=== PATIENT | male | born 1995 | race Caucasian/White ===

== ENCOUNTER 2016-12-17 05:41 | Inpatient (IN) | payer BC ==
[2016-12-17 06:20] LABS: CH 29.5; CHCM 33.4; HCT 42.8 % (39.0-53.0); HDW 2.46; HGB 14.2 gm/dL (13.0-17.5); MCH 29.4 pg (25.0-35.0); MCHC 33.1 g/dL (31.0-37.0); MCV 88.8 fL (80.0-100.0); Mean Platelet Volume 6.6; RBC 4.82 m/uL (4.30-5.90); RDW 12.7 % (11.5-15.5); WBC 8.8 k/uL (3.8-10.6)
[2016-12-17] MEDS ORDERED: FAMOTIDINE 20 MG/2 ML VIAL IV STA (06:22)
--- NOTE | 2016-12-17 06:22 | ED ---
General Adult HPI - General Chief complaint: Overdose Stated complaint: overdose Time Seen by Provider: 12/17/16 05:55 Source: patient, EMS, RN notes reviewed Mode of arrival: EMS Limitations: no limitations - History of Present Illness Initial comments: Patient is a 21-year-old male presenting to the emergency department following medication ingestion. Patient is not forthcoming with information however does admit to taking pills. Patient is unclear how many he took. Patient does have bottles of Zofran quantity 10, propanolol 40 mg quantity 60, naproxen 500 mg quantity 60. Patient is unclear how much of each of these he actually took. Patient did vomit in the emergency department. Patient does have some nausea. Patient omits to being depressed and having suicidal thoughts. No history of suicide attempt in the past. No homicidal thoughts. No hallucinations. No physical complaints. Patient does admit to alcohol ingestion. - Related Data Allergies Allergy/AdvReac Type Severity Reaction Status Date / Time Penicillins Allergy Rash/Hives Verified 12/17/16 05:50 Review of Systems ROS Statement: Those systems with pertinent positive or pertinent negative responses have been documented in the HPI. ROS Other: All systems not noted in ROS Statement are negative. Constitutional: Denies: fever Eyes: Denies: eye pain ENT: Denies: ear pain Respiratory: Denies: cough Cardiovascular: Denies: chest pain Endocrine: Denies: fatigue Gastrointestinal: Reports: abdominal pain, nausea, vomiting Genitourinary: Denies: dysuria Musculoskeletal: Denies: back pain Skin: Denies: rash Neurological: Denies: weakness Past Medical History Additional Past Medical History / Comment(s): migraines History of Any Multi-Drug Resistant Organisms: Unobtainable Past Surgical History: No Surgical Hx Reported Past Psychological History: No Psychological Hx Reported Smoking Status: Current every day smoker Past Alcohol Use History: Occasional Past Drug Use History: None Reported General Exam Limitations: no limitations General appearance: alert, in no apparent distress Head exam: Present: atraumatic Eye exam: Present: normal appearance, PERRL ENT exam: Present: normal oropharynx Neck exam: Present: normal inspection Respiratory exam: Present: normal lung sounds bilaterally Cardiovascular Exam: Present: regular rate, normal rhythm GI/Abdominal exam: Present: soft, tenderness (Mild epigastric tenderness to palpation). Absent: distended Extremities exam: Present: normal inspection Neurological exam: Present: alert Psychiatric exam: Present: depressed Skin exam: Absent: rash Course Vital Signs 12/17/16 05:46 Temperature 98.4 F Respiratory 83 H Rate Blood Pressure 98/57 O2 Sat by Pulse 98 Oximetry EKG Findings - EKG Comments: EKG Findings:: Normal sinus rhythm at 76. First-degree AV block the VA of 202. QRS 84. QT 352. QTC 396. Normal axis. Normal QRS. Repolarization changes. Medical Decision Making - Medical Decision Making Patient reexamined in updated. Case discussed in detail with Dr. Newman, who will admit for medical call. Psychiatry will be consulted. - Lab Data Result diagrams: 12/17/16 05:49 12/17/16 05:49 Lab Results 12/17/16 12/17/16 12/17/16 Range/Units 05:49 05:49 05:49 WBC 8.8 (3.8-10.6) k/uL RBC 4.82 (4.30-5.90) m/uL Hgb 14.2 (13.0-17.5) gm/dL Hct 42.8 (39.0-53.0) % MCV 88.8 (80.0-100.0) fL MCH 29.4 (25.0-35.0) pg MCHC 33.1 (31.0-37.0) g/dL RDW 12.7 (11.5-15.5) % Plt Count 216 (150-450) k/uL PT (9.0-12.0) sec INR (<1.1) Sodium 147 H (137-145) mmol/L Potassium 4.0 (3.5-5.1) mmol/L Chloride 112 H (98-107) mmol/L Carbon Dioxide 23 (22-30) mmol/L Anion Gap 12 mmol/L BUN 10 (9-20) mg/dL Creatinine 0.99 (0.66-1.25) mg/dL Est GFR (MDRD) Af Amer >60 (>60 ml/min/1.73 sqM) Est GFR (MDRD) Non-Af >60 (>60 ml/min/1.73 sqM) Glucose 92 (74-99) mg/dL Calcium 7.5 L (8.4-10.2) mg/dL Total Bilirubin 0.6 (0.2-1.3) mg/dL AST 84 H (17-59) U/L ALT 53 (21-72) U/L Alkaline Phosphatase 74 (38-126) U/L Total Protein 6.3 (6.3-8.2) g/dL Albumin 3.9 (3.5-5.0) g/dL Salicylates <1.0 mg/dL Acetaminophen <10.0 ug/mL Serum Alcohol 173 mg/dL 12/17/16 Range/Units 05:49 WBC (3.8-10.6) k/uL RBC (4.30-5.90) m/uL Hgb (13.0-17.5) gm/dL Hct (39.0-53.0) % MCV (80.0-100.0) fL MCH (25.0-35.0) pg MCHC (31.0-37.0) g/dL RDW (11.5-15.5) % Plt Count (150-450) k/uL PT 11.6 (9.0-12.0) sec INR 1.2 (<1.1) Sodium (137-145) mmol/L Potassium (3.5-5.1) mmol/L Chloride (98-107) mmol/L Carbon Dioxide (22-30) mmol/L Anion Gap mmol/L BUN (9-20) mg/dL Creatinine (0.66-1.25) mg/dL Est GFR (MDRD) Af Amer (>60 ml/min/1.73 sqM) Est GFR (MDRD) Non-Af (>60 ml/min/1.73 sqM) Glucose (74-99) mg/dL Calcium (8.4-10.2) mg/dL Total Bilirubin (0.2-1.3) mg/dL AST (17-59) U/L ALT (21-72) U/L Alkaline Phosphatase (38-126) U/L Total Protein (6.3-8.2) g/dL Albumin (3.5-5.0) g/dL Salicylates mg/dL Acetaminophen ug/mL Serum Alcohol mg/dL - Radiology Data Interpreted by me: Abdominal x-ray shows no acute process Disposition Clinical Impression: Medication overdose, Depression, Suicide attempt Disposition: ADMITTED IP TO THIS HOSP
[2016-12-17] MEDS ORDERED: PEG 3350-NA SULF,BICARB,CL/KCL 4,000 ML BOTTLE PO ONE ×2 (06:25→11:52)
[2016-12-17 06:31] LABS: ALT 53 U/L (21-72); AST 84 U/L (17-59); Alkaline Phosphatase 74 U/L (38-126); Anion Gap 12 mmol/L; Blood Urea Nitrogen 10 mg/dL (9-20); Calcium 7.5 mg/dL (8.4-10.2); Carbon Dioxide 23 mmol/L (22-30); Chloride 112 mmol/L (98-107); Glucose 92 mg/dL (74-99); Non-African American GFR(MDRD) >60 (>60 ml/min/1.73 sqM); Sodium 147 mmol/L (137-145); Total Bilirubin 0.6 mg/dL (0.2-1.3); Total Protein 6.3 g/dL (6.3-8.2)
[2016-12-17 06:34] LABS: INR 1.2 (<1.1); Prothrombin Time 11.6 sec (9.0-12.0)
[2016-12-17 06:43] LABS: Alcohol 173 mg/dL
[2016-12-17 06:50] LABS: Acetaminophen <10.0 ug/mL; Salicylate <1.0 mg/dL
[2016-12-17] MEDS ORDERED: NALOXONE 0.4 MG/ML 1 ML VIAL IV PRN (07:12)
[2016-12-17] MEDS: SODIUM CHLORIDE 0.9% 1,000 ML IV SCH ×2 (07:30→22:11)
--- NOTE | 2016-12-17 07:40 | XR ---
EXAMINATION TYPE: XR abdomen 1V DATE OF EXAM: 12/17/2016 7:10 AM CLINICAL HISTORY: Abdominal pain not further specified. TECHNIQUE: 2 supine KUB images of the abdomen are obtained COMPARISON: None. FINDINGS: Scattered gas is seen in non-distended stomach and small bowel loops. Gas and fecal mater ial is seen in non-distended colon and rectum. Catheter mid thorax may reflects nasogastric tube whic h needs to be advanced. Clinical correlation advised. There is no visceromegaly, pneumoperitoneum, or abnormal calcification appreciated. The lung bases are clear and the osseous structures are intact. IMPRESSION: Overall nonobstructive bowel gas pattern. Possible nasogastric tube with tip in lower thorax needs to be advanced, clinical correlation advised.
[2016-12-17 09:30] VITALS: BMI 18.1
[2016-12-17] MEDS ORDERED: BISACODYL 10 MG SUPP RECTAL STA (11:53)
[2016-12-17 12:17] LABS: Glucose,Whole Blood 91 mg/dL (75-99)
[2016-12-17 12:40] LABS: Creatine Kinase 216 U/L (55-170)
[2016-12-17 12:53] LABS: Creatine Kinase MB 1.1 ng/mL (0.0-2.4); Troponin I <0.012 ng/mL (0.000-0.034)
[2016-12-17 15:00] LABS: Glucose,Whole Blood 87 mg/dL (75-99)
[2016-12-17 15:30] LABS: ALT 135 U/L (21-72); AST 148 U/L (17-59); Anion Gap 11 mmol/L; Blood Urea Nitrogen 8 mg/dL (9-20); Calcium 8.6 mg/dL (8.4-10.2); Carbon Dioxide 27 mmol/L (22-30); Chloride 105 mmol/L (98-107); Glucose 96 mg/dL (74-99); Non-African American GFR(MDRD) >60 (>60 ml/min/1.73 sqM); Potassium 4.7 mmol/L (3.5-5.1); Sodium 143 mmol/L (137-145)
[2016-12-17 16:49] LABS: Glucose,Whole Blood 83 mg/dL (75-99)
--- NOTE | 2016-12-17 17:52 | HP ---
DATE OF ADMISSION: 12/17/2016 CHIEF COMPLAINT: drug overdose brought by the EMS. HISTORY OF PRESENT ILLNESS: Mr. Kothari is a 21-year-old male with a known history of depression, presented to the ER following medication ingestion. Patient apparently took Zofran quantity of 10 and Propranolol 40 mg quantity of 60 and Naprosyn 500 mg quantity of 60 as per the bottles but patient is unclear how much actually of each of his medications he took. Patient did vomit in the emergency room. Patient otherwise currently denied any complaints of chest pain or short of breath. Blood pressure around 118 ( ). Patient is being continued on IV fluids. Poison control has recommended Go-Lytely and rectal suppository at this time. Otherwise the patient denied any complaints of numbness or tingling. No headache or dizziness. Denied any previous suicide attempt. The patient was alcohol intoxication with alcohol level of 173. On admission and UDS positive for marijuana as well. REVIEW OF SYSTEMS: CONSTITUTIONAL: No fever. No chills. No recent illnesses. RESPIRATORY: No cough or sputum production. CARDIOVASCULAR: No chest pain or short of breath. ABDOMEN: No nausea, vomiting, abdominal pain. GENITOURINARY: Negative. ENDOCRINE: Negative. PSYCHIATRY: As mentioned earlier. SKIN: Negative. All other fourteen-point review of systems negative except as above. Past medical history includes migraine headaches. PAST SURGICAL HISTORY: No past surgical history. PSYCHOSOCIAL HISTORY: Denied any psychosocial history. Alcohol use: Occasional alcohol use. Currently every day smoker 1/2 pack to 1 pack per day. Denied any drugs or IVDU. Patient does use marijuana, last use about 1 to 2 days ago. ALLERGIES: PENICILLIN. FAMILY HISTORY: Denied any history of hypertension, diabetes, or premature heart disease in the family. Home medications include: 1. Zofran. 2. Propranolol. 3. Naprosyn for migraine headaches. PHYSICAL EXAMINATION: A 68-year-old man lying in bed comfortably, awake, alert and oriented times three. Appears to be in no apparent distress. VITALS: Blood pressure is 118/74, pulse 77, respiratory rate 18, temperature afebrile. Pulse ox 99% on room air. HEENT: Atraumatic, normocephalic. Neck is supple. No JVD. CVS: S1, S2 heard. No murmurs, no gallop. LUNGS: Bilateral air entry is present. No wheezing. No crackles. ABDOMEN: Soft, nontender. Bowel sounds present. CENTRAL NERVOUS SYSTEM: Awake, alert and oriented times three. No focal deficits. EXTREMITIES: No edema, pulse palpable bilaterally. No clubbing or cyanosis. PSYCHIATRIC: Cooperative. Currently denied suicidal ideation. LABORATORY DATA: WBC 8.8, hemoglobin 14.2, platelets 216 and INR 1.2. Sodium 147, potassium 4.0, chloride 112, bicarb is 23, anion gap 12, BUN 10, creatinine 0.99. Calcium 7.5, AST is 84, ALT 53, CK level 216. Albumin 3.9. UDS positive for marijuana and serum alcohol level 173. ASSESSMENT: 1. Acute her medication overdose with propranolol, Zofran and Naprosyn. 2. Suicide attempt. 3. History of depression. 4. History of migraine headaches. 5. Marijuana abuse. 6. Acute alcohol intoxication on admission. 7. Elevated sodium level, dehydration and volume depletion. DISCUSSION AND PLAN: Patient will be continued on IV fluids, normal saline at 75 mL per hour at this time. Continue the Pepcid. Monitor blood pressure and patient was started on GoLYTELY and dulcolax suppository, Dulcolax as per the toxicology recommendations. Will continue to monitor blood pressure and HR. Prognosis guarded. Psychiatry has been consulted as well. Further recommendations based on the clinical course and continue to monitor the patient closely. MTDD
[2016-12-17] MEDS ORDERED: ACETYLCYSTEINE 6,000 MG/30 ML VIAL PO ONE (20:00)
[2016-12-17 20:30] LABS: Glucose,Whole Blood 89 mg/dL (75-99)
[2016-12-17] MEDS: FAMOTIDINE 20 MG TAB PO SCH (22:11)
[2016-12-17] MEDS: ACETYLCYSTEINE 6,000 MG/30 ML VIAL PO SCH (23:36)
[2016-12-18 00:05] VITALS: RESP 16
[2016-12-18] MEDS: ACETYLCYSTEINE 6,000 MG/30 ML VIAL PO SCH ×4 (04:25→15:04)
[2016-12-18 05:54] LABS: Glucose,Whole Blood 102 mg/dL (75-99)
[2016-12-18 06:11] LABS: Basophils % (A) 1 %; CH 29.3; CHCM 32.7; Eosinophils # (A) 0.1 k/uL (0-0.7); Eosinophils % (A) 2 %; HCT 40.1 % (39.0-53.0); HGB 13.1 gm/dL (13.0-17.5); Luc # (Auto) 0.12; Luc % (Auto) 2; Lymphocytes # (A) 2.2 k/uL (1.0-4.8); Lymphocytes % (A) 35 %; MCH 29.5 pg (25.0-35.0); MCHC 32.8 g/dL (31.0-37.0); MCV 89.9 fL (80.0-100.0); Mean Platelet Volume 6.9; Monocytes # (A) 0.3 k/uL (0-1.0); Monocytes % (A) 5 %; Neutrophils # (A) 3.4 k/uL (1.3-7.7); Neutrophils % (A) 55 %; RBC 4.45 m/uL (4.30-5.90); RDW 12.7 % (11.5-15.5); WBC 6.2 k/uL (3.8-10.6); WBC (Perox) 6.57
[2016-12-18 06:15] LABS: INR 1.3 (<1.1); Prothrombin Time 12.7 sec (9.0-12.0)
[2016-12-18 06:23] LABS: ALT 91 U/L (21-72); AST 53 U/L (17-59); Acetaminophen <10.0 ug/mL; Alkaline Phosphatase 57 U/L (38-126); Anion Gap 8 mmol/L; Blood Urea Nitrogen 10 mg/dL (9-20); Calcium 8.6 mg/dL (8.4-10.2); Carbon Dioxide 27 mmol/L (22-30); Chloride 106 mmol/L (98-107); Glucose 103 mg/dL (74-99); Non-African American GFR(MDRD) >60 (>60 ml/min/1.73 sqM); Potassium 4.3 mmol/L (3.5-5.1); Sodium 141 mmol/L (137-145); Total Bilirubin 1.1 mg/dL (0.2-1.3); Total Protein 5.7 g/dL (6.3-8.2)
[2016-12-18] MEDS: FAMOTIDINE 20 MG TAB PO SCH (09:00)
--- NOTE | 2016-12-18 10:11 | P.CN ---
Psychiatric Consult - . Consult date: 12/18/16 Consult:: 12/18/16 09:54 IDENTIFYING DATA: A 21-year-old single male patient HPI: Patient admitted to the medical floor [facility] status post overdose of multiple medications. Per chart history the patient overdosed on Zofran, propranolol and Naprosyn. Per chart history his alcohol level was 173. Patient states that he was intoxicated and ended up taking pills, relays he took medications from the past. He is not exactly sure how many he took. He states that he got in an argument with a friend he left the friend's home" something on Facebook and then his friend ended up coming to his place. He says he feels the intoxication with alcohol had a lot to do with it. He does state he had a recent breakup from his girlfriend 2 weeks ago also stress from work. He does admit to some depression. He says he doesn't remember what was going on in his mind when he took the pills. He relates that he had not been having thoughts of suicide over the past couple weeks. He denies any significant anxiety. PAST PSYCHIATRIC HISTORY: No history of psychiatric treatment. He's never had any suicide attempts. Never had any psychiatric hospitalizations. PMH: History of migraine headaches. ALLERGIES: PENICILLINS MEDICATIONS: Mucomyst, Pepcid, Narcan when necessary CHEMICAL DEPENDENCY HISTORY: Patient stopped drinking about a month ago but then started after the breakup with girlfriend 2 weeks ago. He says uses marijuana couple times per week. FAMILY PSYCHIATRIC HISTORY: Denies FAMILY CHEMICAL DEPENDENCY HISTORY: Makes reference to concern of relatives with medications, makes a specific reference to Xanax. 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 He did graduate from high school. he has 7 half siblings. He is single , never been , no children. Does not have much contact with his father, relays he has a lot of contact with his mom. MENTAL STATUS EXAM: He is fully alert and cooperative with the interview. Speech is fluent, not rapid or pressured. Thought processes are organized. His mood is described as "pretty good." His affect does show range. He denies any current thoughts of harm to self or others. He relates that he slept to be alive. He does not show any evidence of agitation or psychosis. Cognitively appears to be grossly intact. IMPRESSIONS: Unspecified depressive disorder; alcohol use disorder; rule out cannabis use disorder PLAN: Recommend inpatient psychiatric stabilization after medical clearance. Would look at antidepressant treatment after he is further stabilized medically and on the inpatient psychiatric unit. Will need to be linked with outpatient counseling and psychiatric follow-up. He does have a sitter in place, we'll maintain one-to-one sitter at this time.
[2016-12-18] MEDS: SODIUM CHLORIDE 0.9% 1,000 ML IV SCH (11:23)
[2016-12-18 11:51] LABS: Glucose,Whole Blood 66 mg/dL (75-99)
[2016-12-18 13:25] LABS: Glucose,Whole Blood 107 mg/dL (75-99)
[2016-12-18 15:12] VITALS: BP 129/57; TEMP 98.2
[2016-12-18 17:03] LABS: ALT 85 U/L (21-72); AST 41 U/L (17-59)
[2016-12-18 17:05] LABS: Glucose,Whole Blood 87 mg/dL (75-99)
[2016-12-18 19:45] VITALS: PULSE 52
[2016-12-19 10:36] LABS: Glucose,Whole Blood 127 mg/dL (75-99)
--- NOTE | 2016-12-19 22:27 | DS ---
DATE OF ADMISSION: 12/17/2016 DATE OF DISCHARGE: 12/18/2016 (to psychiatric unit) DISCHARGE DIAGNOSES: 1. Acute medication overdose with propranolol, Zofran and Naprosyn. 2. Acute suicide attempt. 3. History of depression. 4. History of migraine headaches. 5. Marijuana abuse. 6. Acute alcohol intoxication on admission. 7. Dehydration and volume depletion, improved. HOSPITAL COURSE: Mr. Kothari is a 21-year-old male with a known history of depression, admitted to the hospital with overdose of above medications. Patient was monitored in the hospital. His heart rate went up to 40 beats per minute. Discussed with toxicology team several times. Recommended ( ) protocol if the heart rate was below 40. Otherwise, patient did improve symptomatically. Heart rate improved over the night; currently went up to 60. Patient was ( ) hospital for propranolol overdose. Patient was found to have elevated liver enzymes. Acetaminophen level is less than 10. Otherwise, repeat liver enzymes have been trending down now. Patient did improve symptomatically. Denied any complaints of abdominal pain. No nausea, vomiting. Alert and oriented x3. Patient was seen by Psychiatry, who recommended inpatient psychiatric admission due to history of depression and suicide attempt. Patient is stable to be transferred to inpatient psychiatric unit. Patient was counseled about marijuana use. DISCHARGE PHYSICAL EXAMINATION: [id number]-old male lying in bed comfortably. Awake, alert and oriented x3. Appears to be in no distress. VITALS: Blood pressure is 129/57, pulse 45, respiration 16, temperature afebrile, pulse ox 100% on room air. LABORATORY DATA: AST came down to 41. ALT is 85. Blood sugar is 107. Discharge physical examination done. Discharge medications reviewed. Patient will be transferred to inpatient psychiatric unit.
== END 2016-12-18 20:17 | DRG 918 ==
LOC: EC 05:41 → 6SEL 07:13
PROVIDERS: ADMIT Internal Medicine; ATTEND Internal Medicine
DX: T45.0X2A Poisoning by antiallergic and antiemetic drugs, intentional self-harm, initial encounter (principal); R45.851 Suicidal ideations; F32.9 Major depressive disorder, single episode, unspecified; T39.312A Poisoning by propionic acid derivatives, intentional self-harm, initial encounter; T44.7X2A Poisoning by beta-adrenoreceptor antagonists, intentional self-harm, initial encounter; F10.129 Alcohol abuse with intoxication, unspecified; G43.909 Migraine, unspecified, not intractable, without status migrainosus; F17.200 Nicotine dependence, unspecified, uncomplicated; F12.10 Cannabis abuse, uncomplicated; E86.0 Dehydration; Y90.6 Blood alcohol level of 120-199 mg/100 ml
CPT/HCPCS: 36415; 74000; 80048; 80053; 80306; 80320; 82550; 82553; 83520; 84450; 84460; 84484; 85025; 85027; 85610; 93005; 96361; 96374; 99285

== ENCOUNTER 2016-12-18 21:02 | Inpatient (IN) | payer BC ==
[2016-12-19 02:16] VITALS: BMI 20.7
[2016-12-19] MEDS ORDERED: MAGNESIUM HYDROXIDE 2,400 MG/10 ML CUP PO PRN (03:42)
[2016-12-19] MEDS ORDERED: ACETAMINOPHEN TAB 325 MG TAB PO PRN (03:42)
[2016-12-19] MEDS ORDERED: MAG HYDROX/AL HYDROX/SIMETH 30 ML CUP PO PRN (03:42)
[2016-12-19] MEDS ORDERED: LORazepam 1 MG TAB PO PRN (03:45)
--- NOTE | 2016-12-19 11:35 | P.HP ---
Psychiatric H&P - . History & Physical: Allergies Allergy/AdvReac Type Severity Reaction Status Date / Time Penicillins Allergy Rash/Hives Verified 12/19/16 08:32 Vital Signs Temp 97.6 F 12/19/16 07:09 Pulse 47 L 12/19/16 07:09 Resp 16 12/19/16 07:09 BP 119/72 12/19/16 07:09 Pulse Ox Intake & Output 12/18/16 12/19/16 12/19/16 18:59 06:59 18:59 Weight 62 kg 12/19/16 11:25 IDENTIFYING DATA: This patient is a 21-year-old single male who was admitted to the mental health unit after an intentional overdose with several medications. HPI: The patient initially presented to the hospital with an overdose of 3 medications while intoxicated with alcohol. He was placed on a medical unit and was subsequently transferred to the mental health unit once medically cleared. Dr. Diaz did see the patient in psychiatric consultation on 12/18 and that note was reviewed. The patient states that he has been excessively drinking especially since the breakup from his girlfriend 2 weeks ago. He reports that early Monday morning he had been out drinking with a friend and they were involved in verbal altercation the patient drove home and posted some concerning comments on Facebook. His friend whom he had been out drinking with came to his home broke in and called 911 after realizing the patient overdosed with medication. The patient states he felt overwhelmed with being home alone in the empty apartment and he had been struggling with financial concerns. He states that is uncharacteristic of him to have suicidal thoughts and there were no prior attempts. We reviewed mood disorder symptoms he endorses no history of major depressive episodes he endorses no hypomanic or manic episodes. He does not report a history of panic attacks and he does not feel excessively anxious on a regular basis. He reports no auditory or visual hallucinations he endorses no specific delusions. He expresses remorse and overdosing with medication. He states he has been excessively using alcohol since the age of 12 and his longest sobriety from alcohol has been approximate one month. His drinking has been a source of numerous arguments with his girlfriend and apparently that is why she broke up with him. He states they have been talking now and he feels that they will reconcile but she wants him to quit drinking. We discussed his options in terms of inpatient chemical dependency treatment but he does not feel that is necessary. PAST PSYCHIATRIC HISTORY: No prior inpatient psychiatric care he is not currently working with an outpatient therapist or psychiatrist no history of suicide attempts. He has not been prescribed psychotropic medications in the past. PMH: Remote history of migraines but he states he has not had one in 1 year ALLERGIES: Penicillin MEDICATIONS: None CHEMICAL DEPENDENCY HISTORY: Alcohol use as noted above, no history of inpatient chemical dependency treatment. He states over the last 2 weeks he has been drinking approximately 12 beers an evening. He reports using marijuana approximately twice a week FAMILY PSYCHIATRIC HISTORY: None reported no suicides in the family FAMILY CHEMICAL DEPENDENCY HISTORY: None reported SOCIAL HISTORY: The patient is 21 years old he single he has no children. He has known his girlfriend for 4 years they've been dating for 10 months. They have been living together. 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 He has a high school education no history of service. He is from this area and has resided in [place]. He was primarily raised by his mother as his father left when he was young. He reports having some visits with his father as a child but no ongoing relationship with him now. The patient has 7 1/2 siblings. He reports no legal history. He reports no history of abuse MENTAL STATUS EXAM: The patient is an alert male appearing his stated age. He is dressed in his own clothing hygiene grooming are adequate. Eye contact is appropriate speech is fluent spontaneous nonpressured. He states his mood is "good" affect is constricted. Thought process is linear he demonstrates no tangential thinking loose associations or flight of ideas. He is reporting no acute suicidal or homicidal ideation intent or plan. There is no evidence of psychosis he does not appear hypomanic or manic. Insight and judgment grossly intact. Cognitively he is alert and oriented to person place and date. He is able to spell world backwards. He is able to recall 3 objects after delay of 3 minutes. He demonstrates no verbal or physical aggressiveness. There is no tremor appreciated. STRENGTHS/WEAKNESSES: Strengths: Housing, employment, reported support from family weaknesses: Ongoing alcohol use INTELLECTUAL FUNCTIONING: Average IMPRESSIONS: [] 1. Depression unspecified, rule out adjustment disorder with depressed mood, rule out major depressive disorder, alcohol use disorder, rule out cannabis use disorder 2. Remote history of migraines 3. Psychosocial dysfunction secondary to psychiatric symptoms including alcohol use PLAN: He patient has been admitted to the mental health unit he is here voluntarily. We reviewed his symptoms. He is endorsing no history of major depressive episodes or other mood disorder symptoms. He does not wish to initiate psychotropic medication at this time and it does not seem necessary. We discussed that he is likely minimizing the significance of the alcohol use and the dysfunction that it is causing. We discussed the appropriateness of inpatient chemical dependency treatment but he prefers to handle the symptoms as an outpatient. Social work will arrange a support meeting. We will continue to monitor him for safety vital signs reviewed. He requires continued psychiatric observation. Social work will meet with the patient to complete a psychosocial assessment and begin discharge planning. He will undergo routine medical consultation. We will involve family in his treatment and discharge planning as he will allow.
--- NOTE | 2016-12-19 22:35 | CONS ---
DATE OF CONSULTATION: REASON FOR CONSULTATION: Medical management. HISTORY OF PRESENT ILLNESS: Mr. Kothari is a 21-year-old male with known history of migraine headaches and depression and depression as well as nicotine addiction. Was initially brought to the hospital after he overdosed himself with Zofran, Propranolol and Naprosyn. The patient was closely monitored in the hospital and as the patient was having suicidal thoughts and major depression, the patient was transferred to inpatient psychiatric unit as per psychiatry recommendations. Otherwise, patient currently heart rate is better controlled 45 to 74. Patient does workout 5 to 6 days per week usually. Otherwise, ( ) came down to normal levels now. Denied any complaints of chest pain or short of breath. No abdominal pain, nausea or vomiting. Patient is tolerating p.o. diet. Currently patient is being treated for depression and possible alcohol withdrawal symptoms. Patient was initially intoxicated when he came to the hospital. Otherwise, currently, patient denied any complaints. No recent illness or sick contacts. REVIEW OF SYSTEMS: CONSTITUTIONAL: No fever. No chills. No weakness, malaise. RESPIRATORY: No cough or sputum production. CARDIOVASCULAR: No chest pain or shortness of breath. No leg swelling. ABDOMEN: No nausea, vomiting. No abdominal pain. NEUROLOGIC: No headache or dizziness, lightheadedness. No numbness or tingling. No weakness. GENITOURINARY: Negative. ENDOCRINE: Negative. PSYCHIATRIC: Negative. SKIN: Negative. All other fourteen-point review of systems negative except above. Current medications are reviewed. Past medical history: Migraine headaches. PAST SURGICAL HISTORY: No past surgical history. PSYCHOSOCIAL HISTORY: Denied any psychiatrist history in the past. Patient does use occasional alcohol use. Currently every day smoker half pack to 1 pack per day. Denied any drugs or IVDU. Patient does use marijuana. Last use was a day prior to hospital. FAMILY HISTORY: Denied history of hypertension, diabetes mellitus, or premature heart disease in the family. ALLERGIES: PENICILLIN. Home medications include: 1. Zofran. 2. ( ) 3. Naprosyn for migraine headaches. PHYSICAL EXAMINATION: A 21-year-old male lying in bed comfortably, awake, alert, oriented, x3 appears to be in no apparent distress. VITALS: Blood pressure is 119/72, pulse 77, pulse is 47, respirations 16, temperature afebrile. Pulse ox is ( ) on room air. HEENT: Atraumatic, normocephalic. Neck is supple. No JVD. CVS: S1, S2 heard. No murmurs, no gallop. LUNGS: Bilateral air entry is present. No wheezing. No crackles. Nonlabored breathing. ABDOMEN: Soft, nontender. Bowel sounds present. EXOTIC DANCER: Awake, alert and oriented times 3. No focal deficits. EXTREMITIES: No edema. Pulses palpable bilaterally. No clubbing or cyanosis. PSYCHIATRIC: Cooperative. LABORATORY DATA: WBC 6.2, hemoglobin 13.1, platelets 164. INR 1.3, sodium 141, potassium 4.3, chloride 106, bicarb is 27. BUN 10, creatinine 0.93, calcium 8.6, AST is 53, ALT is 91, alk phos 57 and a total protein is 3.4. Acetaminophen and alcohol level is less than 10. IMPRESSION: 1. Acute suicide attempt with overdose of propranolol, Zofran and Naprosyn. Currently, blood sugar and heart rate is well controlled. Denied any other issues going on. 2. Acute suicide attempt. 3. Migraine headaches, currently stable now. Continue home medications when he was discharged. 4. Elevated liver enzymes, which are trending down to normal levels now due to overdose. 5. Nicotine addiction. 6. Marijuana abuse. 7. Acute alcohol intoxication on admission and monitor for alcohol withdrawal symptoms and Ativan p.r.n. IV. 8. Deep venous thrombosis prophylaxis. Patient will be continued on early ambulation. RECOMMENDATIONS AND PLAN: Patient will be continued on Ativan p.r.n. for alcohol withdrawal symptoms and anxiety. Psychiatric medications as per psychiatry recommendations for depression. The patient can be started back on home medications when he gets discharged. Otherwise, the patient was counseled extensively for smoking cessation and marijuana abuse as well as alcohol abuse. We will continue current management and further recommendations based on the clinical course.
[2016-12-20 06:45] VITALS: BP 98/54; PULSE 61; RESP 16; TEMP 98.2
--- NOTE | 2016-12-20 09:21 | P.DS ---
Providers Date of admission: 12/18/16 21:02 Expected date of discharge: 12/20/16 Attending physician: Marlon Ojeda Consults: 12/19/16 03:42 Consult Physician Routine Consulting Provider: Raj Newman Consult Reason/Comments: medical management Do you want consulting provider notified?: Yes, Notify in am Primary care physician: Merlyn Mathew - Discharge Diagnosis(es) (1) Depression Current Visit: Yes Status: Acute Priority: High (2) Alcohol use disorder Current Visit: Yes Status: Acute Priority: High Hospital Course: Brief summary of admission note: This patient is a 21-year-old single male who was admitted to the mental health unit after an intentional overdose with several medications while intoxicated with alcohol. The patient presented to the hospital after his friend called 911 he was placed on the medical unit was subsequently medically cleared and admitted to the mental health unit. He reported that he has a long history of using alcohol and had been more excessively drinking since his girlfriend broke up within 2 weeks ago. While intoxicated he overdosed with 3 medications impulsively and states this was not a premeditated event. He had posted some concerning statements on Facebook alerting his friend who came over. For full details please refer to my psychiatric evaluation dated 12/19/2016. Summary of hospital course: The patient was admitted to the mental health unit and signed in voluntarily. We reviewed his presenting symptoms and treatment options. He states his mood was good he states he has had no history of depressive episodes anxiety symptoms hypomanic or manic episodes or psychosis. He feels that he was reacting to the recent breakup and felt lonely coming home to an empty apartment. He does admit to having an issue with excessive alcohol use and that did disinhibit him to act impulsively. He states suicidal thinking is uncharacteristic for him and he is aware that he has other coping strategies to utilize. He was seen by the internal medicine physician while hospitalized. The patient attended groups he demonstrated no agitated behavior. He is demonstrating no alcohol withdrawal symptoms. Social work will arrange a support meeting today prior to discharge. We discussed the option of having him attend inpatient chemical dependency treatment and he does not wish to attend. He is willing to consider outpatient options for addressing his alcohol use in developing healthier coping skills. At no point on the mental health unit as he verbalized any suicidal thoughts. Mental status exam: The patient is a thin male appearing his stated age. He is dressed in his own clothing eye contact is appropriate speech is fluent and spontaneous nonpressured. He describes his mood as being "good" he demonstrates a euthymic affect. He is reporting no hopelessness thinking no suicidal ideation intent or plan. He is reporting no homicidal ideation intent or plan. He is endorsing no auditory or visual hallucinations he is endorsing no specific delusions. There is no evidence of psychosis. There is no evidence of hypomanic or manic symptoms. Insight and judgment grossly intact. Cognitively he is grossly intact he continues to be oriented to person place and date. There is no verbal or physical aggressiveness demonstrated no psychomotor slowing or agitation. Impressions 1. Depression unspecified, rule out adjustment disorder with depressed mood, rule out major depressive disorder, alcohol use disorder rule out cannabis use disorder 2. Recent medication overdose, remote history of migraines 3. Psychosocial dysfunction due to relationship strain and alcohol use Plan: The patient will be discharged mental health unit today to return home. Social work will arrange a support meeting prior to discharge. The patient does not require a psychotropic medication at this time nor does he wish to take 1. We discussed having him potentially participate in inpatient chemical dependency treatment but he refuses that option and states he will address his alcohol use issues in the outpatient setting. Social work will arrange his outpatient mental health follow-up appointment. He is reporting no suicidal ideation intent or plan. He feels supported by his girlfriend and mother. He plans to return to work. He plans to spend more with friends who do not utilize alcohol. He states him and his girlfriend may be able to reconciles a long as he quits drinking. We discussed that his safety risk is elevated with continued alcohol use. It is recommended that he discontinue use of marijuana. There is no imminent safety risk he is appropriate for transition to outpatient care at this time he is instructed to return to the hospital with any acute safety issues. Patient Condition at Discharge: Stable Plan - Discharge Summary Discharge Medication List No Known Home Medications [No Known Home Medications] 12/17/16 [History]
== END 2016-12-20 12:31 | disposition home or self-care (01) | DRG 881 ==
LOC: 3MHU 21:02
PROVIDERS: ADMIT Psychiatry & Neurology Psychiatry; ATTEND Psychiatry & Neurology Psychiatry
DX: F32.9 Major depressive disorder, single episode, unspecified (principal); F41.9 Anxiety disorder, unspecified; F43.21 Adjustment disorder with depressed mood; F12.10 Cannabis abuse, uncomplicated; F10.10 Alcohol abuse, uncomplicated; R74.8 Abnormal levels of other serum enzymes; F17.200 Nicotine dependence, unspecified, uncomplicated; G43.909 Migraine, unspecified, not intractable, without status migrainosus; Z88.0 Allergy status to penicillin; Z91.5 Personal history of self-harm; Z59.9 Problem related to housing and economic circumstances, unspecified; Z71.6 Tobacco abuse counseling
CPT/HCPCS: 84443

== ENCOUNTER 2017-07-31 19:45 | Emergency (ER) | payer BC ==
[2017-07-31] MEDS ORDERED: SODIUM CHLORIDE 0.9% 1,000 ML IV STA (21:09)
[2017-07-31 21:26] LABS: Basophils % (A) 1 %; CH 29.4; CHCM 33.1; Eosinophils # (A) 0.2 k/uL (0-0.7); Eosinophils % (A) 3 %; HCT 45.6 % (39.0-53.0); HDW 2.45; HGB 15.4 gm/dL (13.0-17.5); Luc # (Auto) 0.16; Luc % (Auto) 2; Lymphocytes # (A) 2.1 k/uL (1.0-4.8); Lymphocytes % (A) 31 %; MCH 30.2 pg (25.0-35.0); MCHC 33.8 g/dL (31.0-37.0); MCV 89.2 fL (80.0-100.0); Mean Platelet Volume 6.9; Monocytes # (A) 0.5 k/uL (0-1.0); Monocytes % (A) 7 %; Neutrophils # (A) 3.9 k/uL (1.3-7.7); Neutrophils % (A) 56 %; RBC 5.12 m/uL (4.30-5.90); RDW 12.5 % (11.5-15.5); WBC 6.9 k/uL (3.8-10.6); WBC (Perox) 6.78
[2017-07-31 21:38] LABS: ALT 33 U/L (21-72); AST 19 U/L (17-59); Alkaline Phosphatase 89 U/L (38-126); Anion Gap 13 mmol/L; Blood Urea Nitrogen 21 mg/dL (9-20); Calcium 9.7 mg/dL (8.4-10.2); Carbon Dioxide 26 mmol/L (22-30); Chloride 104 mmol/L (98-107); Glucose 90 mg/dL (74-99); Non-African American GFR(MDRD) >60 (>60 ml/min/1.73 sqM); Potassium 4.1 mmol/L (3.5-5.1); Sodium 143 mmol/L (137-145); Total Bilirubin 0.5 mg/dL (0.2-1.3); Total Protein 7.3 g/dL (6.3-8.2)
--- NOTE | 2017-07-31 22:29 | US ---
EXAMINATION TYPE: US abdomen complete DATE OF EXAM: 07/31/2017 COMPARISON: NONE CLINICAL HISTORY: abdominal pain. EXAM MEASUREMENTS: Liver Length: 15.65 cm Gallbladder Wall: 0.27 cm CBD: 0.28 cm Spleen: 11.4 cm Right Kidney: 8.9 x 3.7 x 4.2 cm Left Kidney: 10.5 x 4.8 x 4.1 cm Pancreas: Tail obscured by overlying bowel gas Liver: wnl Gallbladder: wnl Evidence for sonographic Villa's sign: no CBD: wnl Spleen: wnl Right Kidney: No hydronephrosis or masses seen Left Kidney: No hydronephrosis or masses seen Upper IVC: wnl Abd Aorta: wnl The liver is homogenous. The intrahepatic portion of the IVC and proximal abdominal aorta are within normal limits. There is no evidence of cholelithiasis. Common bile duct is unremarkable. The visu alized portions of the pancreas are homogenous. The spleen is unremarkable. Kidneys are symmetric a nd free of hydronephrosis. No renal lesions are seen. IMPRESSION: Negative complete abdominal sonogram. No gallstones or dilated ducts.
--- NOTE | 2017-07-31 22:35 | ED ---
Abdominal Pain HPI - General Chief Complaint: Abdominal Pain Stated Complaint: [facility]/Abd Pain Time Seen by Provider: 07/31/17 20:57 Source: patient Mode of arrival: ambulatory Limitations: no limitations - History of Present Illness Initial Comments: Patient sent from urgent care for ultrasound of the abdomen. Patient had an x- ray done at urgent care that said "likely stomach and fluid compressing colon, however mass cannot be ruled out". Patient states she has had mild intermittent pain across his upper abdomen for the past one week. Patient states initially he had rhinorrhea which started his symptoms. Patient states he had one episode of diarrhea 2 days ago. Problems have been normal since then. Patient denies vomiting, changes in urination, blood in his stools, constipation, previous abdominal surgery, previous intra-abdominal diagnoses, fevers, chills. Patient states he is currently asymptomatic. He only came to the ER because the radiology read of the x-ray recommended a follow-up ultrasound. Patient states it would be at least a week to get in to see his primary care physician, so he wishes to get blood work and ultrasound completed in the ER. MD Complaint: abdominal pain - Related Data Home Medications Medication Instructions Recorded Confirmed No Known Home Medications [No 12/17/16 07/31/17 Known Home Medications] Allergies Allergy/AdvReac Type Severity Reaction Status Date / Time amoxicillin [From Augmentin] Allergy Rash/Hives Verified 07/31/17 21:13 clavulanic acid Allergy Rash/Hives Verified 07/31/17 21:13 [From Augmentin] Penicillins Allergy Rash/Hives Verified 07/31/17 21:13 Review of Systems ROS Statement: Those systems with pertinent positive or pertinent negative responses have been documented in the HPI. ROS Other: All systems not noted in ROS Statement are negative. Constitutional: Denies: fever, chills, weakness Eyes: Denies: vision change ENT: Reports: congestion. Denies: ear pain, throat pain Respiratory: Denies: cough, dyspnea Cardiovascular: Denies: chest pain, palpitations Endocrine: Denies: fatigue Gastrointestinal: Reports: abdominal pain. Denies: nausea, vomiting, diarrhea, constipation, hematemesis, melena Genitourinary: Denies: urgency, dysuria, frequency, hematuria Musculoskeletal: Denies: back pain Skin: Denies: rash Neurological: Denies: headache, weakness, numbness, confusion Past Medical History Additional Past Medical History / Comment(s): migraines History of Any Multi-Drug Resistant Organisms: None Reported Past Surgical History: No Surgical Hx Reported Additional Past Anesthesia/Blood Transfusion Reaction / Comment(s): NO surgical history Past Psychological History: No Psychological Hx Reported Smoking Status: Current every day smoker Past Alcohol Use History: Rare Past Drug Use History: None Reported - Past Family History Father History Unknown: Yes Mother Family Medical History: No Reported History Additional Family Medical History / Comment(s): also has step brothers and sisters, no medical history that he is aware of. General Exam - General Exam Comments Initial Comments: Lying on bed. No acute distress. Smiling, calm, pleasant. Well-appearing. Does not appear in pain. Limitations: no limitations General appearance: alert, in no apparent distress Head exam: Present: atraumatic, normocephalic Eye exam: Present: normal appearance, PERRL, EOMI ENT exam: Present: normal exam Neck exam: Present: normal inspection, full ROM. Absent: tenderness Respiratory exam: Present: normal lung sounds bilaterally. Absent: respiratory distress, wheezes, rales, rhonchi, stridor Cardiovascular Exam: Present: regular rate, normal rhythm GI/Abdominal exam: Present: soft. Absent: distended, tenderness, guarding, rebound, rigid Extremities exam: Present: normal inspection Neurological exam: Present: alert, oriented X3 Psychiatric exam: Present: normal affect, normal mood Skin exam: Present: warm, dry, intact. Absent: rash Course Vital Signs 07/31/17 19:57 Temperature 99.0 F Pulse Rate 92 Respiratory 20 Rate Blood Pressure 140/81 O2 Sat by Pulse 100 Oximetry Medical Decision Making - Medical Decision Making Risk-benefit discussion of lab work and ultrasound in the ER, patient states he wants to get the ultrasound and lab work done here, does not want follow-up primary care physician. BUN elevated, no other abnormalities on lab work. Patient given IV fluids. U/S Of the Abdomen Has No Acute Findings. Patient had a urinalysis done as an outpatient at the urgent care today, no protein, no signs of infection, trace ketones. Patient was asymptomatic on arrival, continues to be a symptomatical the ER. Patient eager to be discharged home. Patient eager to go eat [employer]. Patient agrees to follow up with primary care physician. Return to ED if there are worsening symptoms. Pt updated with all results. - Lab Data Result diagrams: 07/31/17 21:16 07/31/17 21:16 Lab Results 07/31/17 07/31/17 Range/Units 21:16 21:16 WBC 6.9 (3.8-10.6) k/uL RBC 5.12 (4.30-5.90) m/uL Hgb 15.4 (13.0-17.5) gm/dL Hct 45.6 (39.0-53.0) % MCV 89.2 (80.0-100.0) fL MCH 30.2 (25.0-35.0) pg MCHC 33.8 (31.0-37.0) g/dL RDW 12.5 (11.5-15.5) % Plt Count 219 (150-450) k/uL Neutrophils % 56 % Lymphocytes % 31 % Monocytes % 7 % Eosinophils % 3 % Basophils % 1 % Neutrophils # 3.9 (1.3-7.7) k/uL Lymphocytes # 2.1 (1.0-4.8) k/uL Monocytes # 0.5 (0-1.0) k/uL Eosinophils # 0.2 (0-0.7) k/uL Basophils # 0.0 (0-0.2) k/uL Sodium 143 (137-145) mmol/L Potassium 4.1 (3.5-5.1) mmol/L Chloride 104 (98-107) mmol/L Carbon Dioxide 26 (22-30) mmol/L Anion Gap 13 mmol/L BUN 21 H (9-20) mg/dL Creatinine 1.00 (0.66-1.25) mg/dL Est GFR (MDRD) Af Amer >60 (>60 ml/min/1.73 sqM) Est GFR (MDRD) Non-Af >60 (>60 ml/min/1.73 sqM) Glucose 90 (74-99) mg/dL Calcium 9.7 (8.4-10.2) mg/dL Total Bilirubin 0.5 (0.2-1.3) mg/dL AST 19 (17-59) U/L ALT 33 (21-72) U/L Alkaline Phosphatase 89 (38-126) U/L Total Protein 7.3 (6.3-8.2) g/dL Albumin 4.5 (3.5-5.0) g/dL Lipase 63 (23-300) U/L - Radiology Data Radiology results: report reviewed Disposition Clinical Impression: Abdominal pain Disposition: HOME SELF-CARE Condition: Good Instructions: Abdominal Pain (ED) Referrals: Tal Enamorado MD [Primary Care Provider] - 1-2 days
[2017-07-31 23:00] VITALS: BP 102/55; PULSE 75; RESP 18; TEMP 98.9
== END 2017-07-31 23:00 | disposition home or self-care (01) ==
LOC: EC 19:45
DX: R10.10 Upper abdominal pain, unspecified (principal); F17.200 Nicotine dependence, unspecified, uncomplicated; Z88.0 Allergy status to penicillin; Z88.1 Allergy status to other antibiotic agents
CPT/HCPCS: 36415; 76700; 80053; 83690; 85025; 96360; 99284

== ENCOUNTER → 2020-11-23 | Outpatient (CLI) | payer OTHER ==
--- NOTE | 2020-11-24 01:48 | MR ---
EXAMINATION TYPE: MR cervical spine wo con DATE OF EXAM: 11/23/2020 COMPARISON: None HISTORY: Severe neck pain and upper back pain. Multiplanar multiecho imaging of the cervical spine was performed without contrast. Cervical vertebra have normal alignment. Disc spaces are normal. There is mild posterior C4-5 disc he rniation with slight elevation of the posterior longitudinal ligament. There is developmentally adequ ate spinal canal. There is no spinal stenosis. Spinal canal measures 9 to 10 mm at C4-5. There is als o a mild posterior disc bulge at C5-6 and C6-7. The brainstem is intact. The posterior elements are i ntact. Facet joints are intact. There is no evidence of paraspinal mass. The neural foramina appear w idely patent. IMPRESSION: Small posterior disc herniation slightly to the right side at C4-5. No spinal stenosis.
== END | disposition home or self-care (01) ==
LOC: RADMRIMAIN 19:40
PROVIDERS: ATTEND Nurse Practitioner Family
DX: M50.121 Cervical disc disorder at C4-C5 level with radiculopathy (principal)
CPT/HCPCS: 72141

== ENCOUNTER 2020-12-30 14:47 | Emergency (ER) | payer OTHER ==
[2020-12-30] MEDS ORDERED: diphenhydrAMINE 50 MG/ML 1 ML VIAL IVP STA (15:16)
[2020-12-30] MEDS ORDERED: ONDANSETRON 4 MG/2 ML VIAL IVP STA (15:16)
[2020-12-30] MEDS ORDERED: KETOROLAC 15 MG/ML 1 ML VIAL IVP STA (15:16)
[2020-12-30] MEDS ORDERED: SODIUM CHLORIDE 0.9% 1,000 ML IV STA (15:16)
--- NOTE | 2020-12-30 15:23 | ED ---
Headache HPI - General Mode of arrival: ambulatory Limitations: no limitations <Promise Woodall - Last Filed: 12/30/20 16:26> <Peace Mora - Last Filed: 01/01/21 13:28> - General Chief Complaint: Headache Stated Complaint: headaches Time Seen by Provider: 12/30/20 15:08 - History of Present Illness Initial Comments: Patient is a 25-year-old male presenting to the emergency Department with complaints of headaches for the last 2 weeks. He does have a history of headaches but he has not had an issue with them in over 5 years. Patient states his headache started about 2 weeks ago, and they have really not gone away. He states it sometimes wakes him up at night and he feels like there is air in the morning. He states the worst one was last night, he stated he felt like he's never had a headache that bad before. He was nauseous as well, felt like he might pass out because of the pain. Patient states he finally come in today because he continues to have a headache. His headache is rated a 7/10 right now. He admits to some mild nausea. He states he really hasn't have an appetite in the past 2 weeks either. He denies any falls or trauma. He states he does have a chronic neck issue, does see pain management for this but states that for the past 3-4 weeks his neck actually has been feeling better. He does make note that his significant other is expecting another child in the next few weeks. He denies any medications, he is an every day smoker, occasional alcohol, no other drug use. He denies any changes in his vision, no chest pain or shortness of breath, no numbness and tingling to his extremities. He did go to his doctor last week because of his headaches, they did try sumatriptan and another medication however it does not seem to be working. He has no further complaints at this time. Upon arrival to the ER, his vital signs are stable. (Promise Woodall) - Related Data Previous Rx's Medication Instructions Recorded Butalb/APAP/Caff 50-325-40Mg 1 tab PO Q4H PRN #5 tablet 12/30/20 [Fioricet 50-325-40] Allergies Allergy/AdvReac Type Severity Reaction Status Date / Time amoxicillin [From Augmentin] Allergy Rash/Hives Verified 12/30/20 14:56 clavulanic acid Allergy Rash/Hives Verified 12/30/20 14:56 [From Augmentin] Penicillins Allergy Rash/Hives Verified 12/30/20 14:56 Review of Systems ROS Other: All systems not noted in ROS Statement are negative. <Promise Woodall - Last Filed: 12/30/20 16:26> ROS Other: All systems not noted in ROS Statement are negative. <Peace Mora Ellis - Last Filed: 01/01/21 13:28> ROS Statement: Those systems with pertinent positive or pertinent negative responses have been documented in the HPI. Past Medical History Additional Past Medical History / Comment(s): migraines History of Any Multi-Drug Resistant Organisms: None Reported Past Surgical History: No Surgical Hx Reported Additional Past Anesthesia/Blood Transfusion Reaction / Comment(s): NO surgical history Past Psychological History: No Psychological Hx Reported Smoking Status: Vaper Past Alcohol Use History: Rare Past Drug Use History: None Reported - Past Family History Father History Unknown: Yes Mother Family Medical History: No Reported History Additional Family Medical History / Comment(s): also has step brothers and sisters, no medical history that he is aware of. <Promise Woodall - Last Filed: 12/30/20 16:26> General Exam Limitations: no limitations <Promise Woodall - Last Filed: 12/30/20 16:26> - General Exam Comments Initial Comments: GENERAL: Patient is well-developed and well-nourished. Patient is nontoxic and in no acute distress. HEAD: Atraumatic, normocephalic. EYES: Pupils equal round and reactive to light, extraocular movements intact, sclera anicteric, conjunctiva are normal. Eyelids were unremarkable. ENT: TMs normal, nares patent, oropharynx clear without exudates. Moist mucous membranes. NECK: Normal range of motion, supple without lymphadenopathy or JVD. LUNGS: Unlabored respirations. Breath sounds clear to auscultation bilaterally and equal. No wheezes rales or rhonchi. HEART: Regular rate and rhythm without murmurs, rubs or gallops. ABDOMEN: Soft, nontender, normoactive bowel sounds. No guarding, no rebound. No masses appreciated. : Deferred MUSCULOSKELETAL: Normal extremities with adequate strength and normal range of motion, no pitting or edema. No clubbing or cyanosis. NEUROLOGICAL: Patient is alert and oriented x 3. Motor and sensory are also intact. Cranial nerves II through XII grossly intact. Symmetrical smile. Normal speech, normal gait. PSYCH: Normal mood, normal affect. SKIN: Warm, Dry, normal turgor, no rashes or lesions noted. (Promise Woodall) Course Vital Signs 12/30/20 12/30/20 14:52 16:44 Temperature 98.9 F 97.6 F Pulse Rate 64 68 Respiratory 17 16 Rate Blood Pressure 129/87 118/62 O2 Sat by Pulse 100 99 Oximetry Medical Decision Making <Promise Woodall - Last Filed: 12/30/20 16:26> <Peace Mora - Last Filed: 01/01/21 13:28> - Medical Decision Making Patient is a 25-year-old male here for headaches 2 weeks. He has history of headaches but has not had issue with them in over 5 years. He had a really bad one last night. No trauma or falls. His vitals are stable. Exam is unremarkable, no acute neuro deficits. Computed tomography scan of his brain is also normal. The give him some fluids, typical migraine cocktail, on reexa mination his headache is almost gone, rates it a 1/10. He feels much improvement. I discussed with patient this most likely sounds like a migraine, could be due from the increase in stress, low appetite and not drinking off water. Patient was very concerned about going home and this headache coming back as his current medications were not helping. I will give him a few tablets of Fioricet to try if headache returns. He will also follow up with his doctor again. Patient is stable for discharge. Patient is in agreement with this plan of care. Return parameters were discussed with the patient and they verbalized understanding. Case discussed with Dr. Mora. (Promise Woodall) I was available for consultation in the emergency department. The history and physical exam were done by the midlevel provider. I was consulted for this patients care. I reviewed the case with the midlevel provider and based on their presentation of the patient, I agree with the assessment, medical decision making and plan of care as documented. Chart was dictated using [employer] dictation software. Attempts were made to correct any dictation errors however some typographical errors may persist. Patient was seen during a national state of emergency due to the Covid-19 pandemic. (Peace Mora) Disposition Is patient prescribed a controlled substance at d/c from ED?: Yes When asked, does pt state using other controlled substances?: No If prescribed controlled substance>3 days was MAPS reviewed?: Prescribed <3 Days <Promise Woodall - Last Filed: 12/30/20 16:26> <Peace Mora - Last Filed: 01/01/21 13:28> Clinical Impression: Headache Disposition: HOME SELF-CARE Condition: Stable Instructions (If sedation given, give patient instructions): Acute Headache (ED) Additional Instructions: Please return to the Emergency Department if symptoms worsen or any other concerns. Recommend increasing fluids, normal diet, lots of rest. Trial of Fioricet for future migraines. Please follow-up with your doctor. Prescriptions: Butalb/APAP/Caff 50-325-40Mg [Fioricet 50-325-40] 1 tab PO Q4H PRN #5 tablet PRN Reason: Headache Referrals: Tal Enamorado MD [Primary Care Provider] - 1-2 days
--- NOTE | 2020-12-30 16:08 | CT ---
EXAMINATION TYPE: CT brain wo con DATE OF EXAM: 12/30/2020 COMPARISON: None INDICATION: Headaches DLP: 1068.4 mGycm, Automated exposure control for dose reduction was used. CONTRAST: None CT of the brain is performed utilizing 3 mm thick sections through the posterior fossa and 3 mm thick sections through the remaining calvarium. Study is performed within 24 hours of arrival to the hosp [facility]. No abnormal hyperdensity is present to suggest an acute intracranial hemorrhage. No mass lesion is evident. No acute infarcts are evident. Ventricles and sulci are appropriate for the patient age. Paranasal sinuses and mastoid air cells within the [id number] are clear. IMPRESSIONS: 1. Normal CT Brain
[2020-12-30 16:45] VITALS: BP 118/62; PULSE 68; RESP 16; TEMP 97.6
== END 2020-12-30 16:47 | disposition home or self-care (01) ==
LOC: EC 14:47
DX: R51.9 Headache, unspecified (principal); R11.0 Nausea; R55 Syncope and collapse; F17.290 Nicotine dependence, other tobacco product, uncomplicated; Z88.0 Allergy status to penicillin; Z88.1 Allergy status to other antibiotic agents; Z86.69 Personal history of other diseases of the nervous system and sense organs
CPT/HCPCS: 70450; J1200; J2405; J1885; 96361; 96374; 96375; 99284